=== PATIENT | male | born 1945 | race Caucasian/White ===

== ENCOUNTER 2016-11-03 06:50 | Day surgery (SDC) | payer MEDICARE ==
[~2016-11-03] VITALS: Ht 180.3 cm; Wt 77.1 kg
--- NOTE | 2016-11-03 08:13 | Operative Note ---
Upper GI Endoscopy Procedure date: 11/03/16 Date of : 41 Procedure:Upper GI Endoscopy Esophagogastroduodenoscopy with cold biopsies Indications: Mr. Garcia is a 71-year-old gentleman with a history of primary biliary cirrhosis diagnosed by a Dr. Rajput in 2012. At that time he had an alkaline phosphatase of 384. He had a positive antimitochondrial antibody, BELLE and elevated IgA level. He had advanced fibrosis and was placed on ursodiol 500 mg by mouth twice a day. He presently has normal liver chemistries. His ultrasound showed cirrhosis but no portal vein thrombosis or liver lesions. The patient did have an upper endoscopy in 2012 showing esophageal varices. The patient does report long-term heartburn, indigestion and acid reflux. He reports no dysphagia. Performing Provider: Lee Myers MD Referring Provider: Erasmo Paul M.D. Sedation: MAC anesthesia Procedure: Prior to the procedure, a history and physical exam was performed, and patients medications and allergies were reviewed. The risks and benefits of the procedure and the sedation options and risks were discussed with the patient. All questions were answered and informed consent was obtained. The patient was brought to the procedure room. Patient identification and proposed procedure were verified by the physician and the nurse. The patient was placed in a left lateral decubitus position and the scope was passed under direct vision. Throughout the procedure, the patient's blood pressure, pulse, and oxygen saturations were monitored continuously. The endoscope was introduced through the mouth, and advanced to the second part of duodenum. The upper GI endoscopy was accomplished without difficulty. The patient tolerated the procedure well. Findings: The scope was passed directly into the upper esophagus and advanced to the third portion of the duodenum. The post bulbar duodenum and duodenal bulb were normal with normal mucosa and conniventes. There was 1 or 2 lymphangiectasias. The scope was withdrawn through a normal duodenal bulb and pylorus into the stomach. There was minimal portal gastropathy. There was some mild linear reactive antritis. The remainder of the antrum, body and fundus of the stomach were grossly normal. Upon retroflexion there was no evidence of fundic varices. There was a medium sized 2-3 cm hiatal hernia. 2 biopsies were taken in the antrum and along the lesser curvature for histology and/or CLOtest. The scope was then withdrawn into the esophagus. There was no evidence of reflux esophagitis or Raya's. There were grade 1 esophageal varices without stigmata. There was mild esophageal dysmotility. There were nonerosive reflux changes. Immediate complications: None EBL (ml): 0 Impression: 1. Grade 1 esophageal varices without stigmata 2. Nonerosive gastroesophageal reflux disease with mild esophageal dysmotility in 2-3 cm hiatal hernia 3. Mild linear reactive antritis/gastritis Recommendations: I will follow-up the biopsies. There was not significant evidence of portal hypertension but I would continue a nonselective beta lakesha. I will proceed with screening colonoscopy. at 0813
--- NOTE | 2016-11-03 08:34 | Operative Note ---
Colonoscopy ([facility]) Procedure date: 11/03/16 Date of : 41 Procedure:Colonoscopy Colonoscopy with cold snare polypectomy Indications: Mr. Garcia is a 71-year-old gentleman with cirrhosis secondary to PBC. He is here for repeat screening/surveillance colonoscopy. He did have a colonoscopy in [address] Kai Christianson M.D. which was normal. The patient does have intermittent hemorrhoidal bleeding. He reports no abdominal pain, weight loss, change in his bowel habits or family history of colon cancer. Performing Provider: Lee Myers MD Referrring Provider: Erasmo Paul M.D. Sedation: MAC sedation Procedure: Prior to the procedure, a history and physical exam was performed, and patient medications and allergies were reviewed. The risks and benefits of the procedure and the sedation options and risks were discussed with the patient. All questions were answered and informed consent was obtained. Patient identification and proposed procedure were verified by the physician and the nurse. The patient was placed in a left lateral decubitus position. Throughout the procedure, the patient's blood pressure, pulse, and oxygen saturations were monitored continuously. Findings: On digital rectal examination there was normal rectal tone. There were no external hemorrhoids. The prostate was 2+, smooth, soft, symmetric without nodules. The colonoscope was introduced through the anal canal to the rectum and advanced to the cecum. The ileocecal valve and appendiceal orifice were identified. The scope was advanced a short distance into the ileum which appeared grossly normal. The scope was then withdrawn into the colon. There were 3 colon polyps identified in the ascending times one, descending 1 and sigmoid polypectomy. There were scattered diverticuli throughout the descending and sigmoid colon (LEFT colon). The rectum itself was normal. Upon retroflexion within the rectum there were grade 1-2 internal hemorrhoids. Impressions: 1. Colonic polyps 3 2. Mild left-sided diverticulosis 3. Grade 1-2 internal hemorrhoids Recommendations: I will follow up the polyp pathology and recommend repeat colonoscopy again in 5 years based upon the polyp histology. I would encourage fiber supplementation on a long-term daily maintenance basis. Complications: None EBL (ml): 0 at 0834
--- NOTE | 2016-11-03 09:12 | Anesthesia Record ---
Anesthesia Record Part I Total IV fluids: 400 EBL (ml): 0 Urine Output: 0 B/P: 111/69 % SaO2: 96 Pulse: 57 Resps: 16 Temp: 97.3 Patient is: Drowsy, Stable Stable to PACU at: 0835 (sds) at 0912
--- NOTE | 2016-11-03 09:13 | Anesthesia Record ---
Anesthesia Record Part II Discharge time: 834 Destination: Same day surgery PACU nurse assessment review? Yes Patient is: Awake, Stable Anesthesia complications? No at 0913
[2016-11-03 09:40] VITALS: BP 131/68
== END 2016-11-03 09:20 | disposition home or self-care (01) ==
LOC: SDC 06:50
PROVIDERS: Internal Medicine Gastroenterology
PROC: 0DBN8ZX Excision of Sigmoid Colon, Via Natural or Artificial Opening Endoscopic, Diagnostic (ICD-10-PCS; 2016-11-03)
PROC: 0DBM8ZX Excision of Descending Colon, Via Natural or Artificial Opening Endoscopic, Diagnostic (ICD-10-PCS; 2016-11-03)
PROC: 0DB78ZX Excision of Stomach, Pylorus, Via Natural or Artificial Opening Endoscopic, Diagnostic (ICD-10-PCS; 2016-11-03)
PROC: 0DBK8ZX Excision of Ascending Colon, Via Natural or Artificial Opening Endoscopic, Diagnostic (ICD-10-PCS; principal; 2016-11-03 08:00)
DX: K59.00 Constipation, unspecified (principal); D12.2 Benign neoplasm of ascending colon; D12.4 Benign neoplasm of descending colon; D12.5 Benign neoplasm of sigmoid colon; K57.30 Diverticulosis of large intestine without perforation or abscess without bleeding; K64.1 Second degree hemorrhoids; K74.5 Biliary cirrhosis, unspecified; I85.00 Esophageal varices without bleeding; K21.9 Gastro-esophageal reflux disease without esophagitis; K44.9 Diaphragmatic hernia without obstruction or gangrene; K22.4 Dyskinesia of esophagus; K29.70 Gastritis, unspecified, without bleeding; K31.9 Disease of stomach and duodenum, unspecified

== ENCOUNTER → 2017-05-07 | Outpatient (CLI) | payer MEDICARE ==
--- NOTE | 2017-05-07 13:50 | RADIOLOGY REPORT PS360 ---
US RUQ-(ABD LTD)1ORGAN/QUAD/FU HISTORY: Follow-up cirrhosis CIRRHOSIS ORDERING PHYSICIAN: TODD JEROME APRN PATIENT AGE: 71 years COMPARISON: 09/09/2016 FINDINGS: PANCREAS: Unremarkable. No obvious mass or abnormal fluid collection. No ductal dilatation LIVER: Heterogeneous somewhat coarse echogenicity noted of the liver. No obvious focal liver lesion or biliary dilatation. There is appropriate directional blood flow within the portal vein. The portal vein is normal in size measuring 7 mm in diameter. RIGHT KIDNEY: 13 mm right renal cyst. No hydronephrosis. Right nephrolithiasis GALLBLADDER: Cholecystectomy. IMPRESSION: 1. Heterogeneous echogenicity of the liver suspicious for patient's diagnosis of cirrhosis. No significant change. Appropriate directional blood flow within the portal vein. 2 prior cholecystectomy. 3. Right nephrolithiasis 4. Overall no significant change from 09/09/2016
== END ==
LOC: RAD 08:11
DX: K74.69 Other cirrhosis of liver (principal)